=== PATIENT | male | born 1990 | race Caucasian/White ===

== ENCOUNTER 2018-06-22 10:06 | Emergency (ER) | payer MEDICAID ==
[~2018-06-22] VITALS: Ht 177.8 cm; Wt 88.5 kg
[2018-06-22] MEDS: KETOROLAC TROMETHAMINE 30 MG INJ IM ONE (10:42)
[2018-06-22] MEDS ORDERED: KETOROLAC TROMETHAMINE 30 MG INJ ONE (10:43)
== END 2018-06-22 11:28 | disposition home or self-care (01) ==
LOC: ER 10:10
DX: S89.91XA Unspecified injury of right lower leg, initial encounter (principal); M25.461 Effusion, right knee; X58.XXXA Exposure to other specified factors, initial encounter; Y93.89 Activity, other specified; Y92.89 Other specified places as the place of occurrence of the external cause; Y99.8 Other external cause status
CPT/HCPCS: A4663; J1885

== ENCOUNTER 2018-06-25 12:15 | Emergency (ER) | payer MEDICAID | END 2018-06-25 12:28 | disposition left against medical advice (07) | LOC: ER 12:15 | DX: Z53.21 Procedure and treatment not carried out due to patient leaving prior to being seen by health care provider (principal) ==

== ENCOUNTER 2019-03-17 21:59 | Emergency (ER) | payer MEDICAID, OTHER ==
[~2019-03-17] VITALS: Ht 177.8 cm; Wt 88.5 kg
--- NOTE | 2019-03-17 22:22 | NUR ---
Dr. Alcala at bedside for MSE.
[2019-03-17] MEDS ORDERED: MORPHINE SULFATE 4 MG/1 ML DISP.SYRIN ONE (22:27)
[2019-03-17] MEDS ORDERED: ONDANSETRON ODT 4 MG TAB.RAPDIS ONE (22:27)
[2019-03-17] MEDS ORDERED: MORPHINE SULFATE 4 MG/1 ML DISP.SYRIN IM ONE (22:30)
[2019-03-17] MEDS ORDERED: ONDANSETRON ODT 4 MG TAB.RAPDIS SL ONE (22:30)
--- NOTE | 2019-03-17 22:30 | NUR ---
Xray at bedside.
--- NOTE | 2019-03-17 23:24 | NUR ---
Patient discharged to home in stable conditon. Written and verbal after care instructions given. Patient verbalizes understanding of instructions. Pt ambulated out of ER with crutches, no falls noted, gait training provided, VSS, no acute signs of distress, all belongings taken.
[2019-03-17 23:26] VITALS: BP 140/90
== END 2019-03-17 23:26 | disposition home or self-care (01) ==
LOC: ER 21:59
DX: S89.91XA Unspecified injury of right lower leg, initial encounter (principal); X50.0XXA Overexertion from strenuous movement or load, initial encounter; Y93.89 Activity, other specified; Y92.89 Other specified places as the place of occurrence of the external cause; Y99.8 Other external cause status
CPT/HCPCS: 29505; 73564; 96372; 99283; J2270; A4663; Q0162

== ENCOUNTER 2019-11-07 12:49 | Emergency (ER) | payer OTHER ==
[~2019-11-07] VITALS: Ht 177.8 cm; Wt 86.2 kg
[2019-11-07] MEDS ORDERED: IV LACTATED RINGERS SOLUTION 1,000 ML BAG IV ONE (12:50)
[2019-11-07] MEDS ORDERED: ONDANSETRON 4 MG/2 ML VIAL IV ONE (12:50)
[2019-11-07] MEDS ORDERED: SODIUM BICARBONATE 4.2 % (NEUT) 5 ML VIAL TP ONE (13:15)
[2019-11-07] MEDS ORDERED: LET TOPICAL SOLUTION 8 ML UDC TP ONE (13:15)
[2019-11-07] MEDS ORDERED: LIDOCAINE HCL 2% 20 ML VIAL TP ONE (13:15)
[2019-11-07] MEDS ORDERED: LIDOCAINE HCL 2% 20 ML VIAL ONE (13:18)
[2019-11-07] MEDS ORDERED: LET TOPICAL SOLUTION 8 ML UDC ONE (13:18)
[2019-11-07] MEDS ORDERED: SODIUM BICARBONATE 4.2 % (NEUT) 5 ML VIAL ONE (13:18)
[2019-11-07] MEDS ORDERED: SULFAMETH/TRIMETH 800/160 MG TABLET ONE (13:59)
[2019-11-07] MEDS ORDERED: IBUPROFEN 800 MG TABLET ONE (13:59)
[2019-11-07] MEDS ORDERED: SULFAMETH/TRIMETH 800/160 MG TABLET PO ONE (14:00)
[2019-11-07] MEDS ORDERED: IBUPROFEN 800 MG TABLET PO ONE (14:00)
--- NOTE | 2019-11-07 14:01 | NUR ---
Patient discharged to home in stable conditon. Written and verbal after care instructions given. Patient verbalizes understanding of instructions.pt walks in steady gait.
== END 2019-11-07 14:03 | disposition home or self-care (01) ==
LOC: ER 12:49
DX: L02.415 Cutaneous abscess of right lower limb (principal); F17.200 Nicotine dependence, unspecified, uncomplicated
CPT/HCPCS: 10060; 99283; J3490 ×2; A4217; A4663; J2405; J7120

== ENCOUNTER 2019-11-09 11:54 | Emergency (ER) | payer OTHER ==
[~2019-11-09] VITALS: Ht 177.8 cm; Wt 83.9 kg
[2019-11-09] MEDS ORDERED: VANCOMYCIN IV 1,000 MG in IV DEXTROSE 5% 250 ML IV ONE (12:30)
[2019-11-09] MEDS ORDERED: CEphaleXIN 500 MG CAPSULE ONE (12:39)
[2019-11-09] MEDS ORDERED: CEphaleXIN 500 MG CAPSULE PO ONE (12:45)
--- NOTE | 2019-11-09 12:46 | NUR ---
Patient discharged to home in stable conditon & brisks teady gait. Written and verbal after care instructions given to patient. Patient verbalizes understanding and compliance of instructions.
== END 2019-11-09 12:48 | disposition home or self-care (01) ==
LOC: ER 11:54
DX: Z48.01 Encounter for change or removal of surgical wound dressing (principal); L03.115 Cellulitis of right lower limb; F17.200 Nicotine dependence, unspecified, uncomplicated
CPT/HCPCS: A4663